=== PATIENT | male | born 1945 | race Caucasian/White ===

== ENCOUNTER 2020-02-21 21:54 | Emergency (ER) | payer MEDICARE, BC ==
[2020-02-21 22:03] VITALS: BP 150/100
--- NOTE | 2020-02-21 22:05 | ED Physician Documentation ---
PD HPI MALE - Stated complaint Stated Complaint: MALE - Chief complaint Chief Complaint: Abd Pain - History obtained from History obtained from: Patient - History of Present Illness Timing - onset: Today Timing - duration: Hours Timing - details: Gradual onset, Constant Pain level now: 8 Associated symptoms: Unable to urinate, Hematuria Similar symptoms before: Diagnosis Recently seen: Clinic - Additional information Additional information: seen by PMD 5 days ago and diagnosed with UTI, rx cipro. presents at this time due to urinary retention x several hours with urge to urinate but unable to do so and increasing suprapubic pain and pressure Review of Systems Constitutional: reports: Reviewed and negative GI: reports: Reviewed and negative : reports: Unable to Void PD PAST MEDICAL HISTORY - Past Medical History Past Medical History: Yes Cardiovascular: Hypertension, High cholesterol Endocrine/Autoimmune: Type 2 diabetes - Present Medications Home Medications: Ambulatory Orders Medication Instructions Recorded Confirmed Atorvastatin [Lipitor] 40 mg 02/21/20 Glimepiride [Amaryl] 2 mg 02/21/20 Hydrochlorothiazide 25 mg PO 02/21/20 Latanoprost/Pf [Latanoprost 0.005% 02/21/20 Eye Drop] Lisinopril [Zestril] 40 mg 02/21/20 Omeprazole 20 mg PO 02/21/20 Pioglitazone [Actos] 30 mg PO DAILY 02/21/20 02/21/20 metFORMIN [Glucophage] 1,000 mg PO BID 02/21/20 02/21/20 - Allergies Allergies/Adverse Reactions: Allergies Allergy/AdvReac Type Severity Reaction Status Date / Time No Known Drug Allergies Allergy Verified 02/21/20 21:56 PD ED PE NORMAL - Vitals Vital signs reviewed: Yes - General General: Alert and oriented X 3, No acute distress, Well developed/nourished - Abdomen Abdomen: Soft, Other (distended and mild TTP suprapubic region) - Back Back: No CVA TTP Results - Vitals Vitals: Vital Signs - 24 hr 02/21/20 21:56 Temperature 36.5 C Heart Rate 52 L Respiratory 16 Rate Blood Pressure 150/100 H O2 Saturation 97 Oxygen O2 Source Room air PD MEDICAL DECISION MAKING - ED course Complexity details: re-evaluated patient ED course: ED RN placed elliott catheter, several hundred cc output of translucent grossly bloody urine; this resulted in resolution of his presenting symptoms Departure - Departure Disposition: 01 Home, Self Care Clinical Impression: Urinary retention, Hematuria Condition: Good Instructions: ED Catheter Care Elliott, ED Hematuria, ED Retention Urinary Male Follow-Up: CHANDRAKANT OCONNOR MD [Primary Care Provider] - Comments: Follow up with your urologist this week. If this cannot be arranged, follow up with your primary care provider. Discharge Date/Time: 02/21/20 23:23
== END 2020-02-21 23:23 | disposition home or self-care (01) ==
LOC: ED 21:54
DX: R33.9 Retention of urine, unspecified (principal); R31.0 Gross hematuria; I10 Essential (primary) hypertension; E11.9 Type 2 diabetes mellitus without complications; Z79.84 Long term (current) use of oral hypoglycemic drugs
CPT/HCPCS: 51702; 51798; 99283

== ENCOUNTER 2020-02-22 18:51 | Emergency (ER) | payer MEDICARE, BC ==
[2020-02-22 19:01] VITALS: BP 174/65
--- NOTE | 2020-02-22 19:17 | ED Physician Documentation ---
History of Present Illness - Stated complaint Stated Complaint: MALE - Chief complaint Chief Complaint: General - History obtained from History obtained from: Patient - Additonal information Additional information: He was recently started on ciprofloxacin for UTI. Came here yesterday and had urinary retention and a Callahan was placed with resolution. States that around 430 this afternoon the catheter stopped draining and has suprapubic pressure again. Has a remote history of prostate cancer. In the interim he called his urologist and he has an appointment on the . Review of Systems Constitutional: denies: Fever, Chills Cardiac: denies: Chest pain / pressure, Palpitations Respiratory: denies: Dyspnea, Cough PD PAST MEDICAL HISTORY - Past Medical History Cardiovascular: Hypertension, High cholesterol Respiratory: None Neuro: None Endocrine/Autoimmune: Type 2 diabetes GI: Esophageal varices : None HEENT: None Psych: None Musculoskeletal: None Derm: None - Past Surgical History Past Surgical History: Yes HEENT: Tonsil/Adenoidectomy - Present Medications Home Medications: Ambulatory Orders Medication Instructions Recorded Confirmed Atorvastatin [Lipitor] 40 mg 02/21/20 Glimepiride [Amaryl] 2 mg 02/21/20 Hydrochlorothiazide 25 mg PO 02/21/20 Latanoprost/Pf [Latanoprost 0.005% 02/21/20 Eye Drop] Lisinopril [Zestril] 40 mg 02/21/20 Omeprazole 20 mg PO 02/21/20 Pioglitazone [Actos] 30 mg PO DAILY 02/21/20 02/21/20 metFORMIN [Glucophage] 1,000 mg PO BID 02/21/20 02/21/20 - Allergies Allergies/Adverse Reactions: Allergies Allergy/AdvReac Type Severity Reaction Status Date / Time No Known Drug Allergies Allergy Verified 02/22/20 19:01 - Social History Does the pt smoke?: No Smoking Status: Former smoker Does the pt drink ETOH?: Yes Does the pt have substance abuse?: No - Immunizations Immunizations are current?: No - POLST Patient has POLST: No PD ED PE NORMAL - Vitals Vital signs reviewed: Yes - General General: Alert and oriented X 3, No acute distress - HEENT HEENT: PERRL, EOMI - Neck Neck: Supple, no meningeal sign, No bony TTP - Abdomen Abdomen: Normal bowel sounds, Soft, Non tender - Male Male : Other (The catheter was flushed at the bedside by me, a single large clot returned and then he had free-flowing only slightly hematuric urine.) - Back Back: No CVA TTP, No spinal TTP - Neuro Neuro: Alert and oriented X 3, Normal speech Results - Vitals Vitals: Vital Signs - 24 hr 02/22/20 18:55 Temperature 36.3 C L Heart Rate 90 Respiratory 18 Rate Blood Pressure 174/65 H O2 Saturation 98 Oxygen O2 Source Room air PD MEDICAL DECISION MAKING - ED course ED course: His catheter was blocked and easily fixed with flushing, single large clot was removed and then the urine was fairly clear. He has an appoint with his urologist in a week. Encouraged him to keep this as he may need a cystoscopy but he would like the catheter out sooner and advised that he could follow-up with his primary care physician or even consider returning to the emergency department in a few days for a voiding trial. Departure - Departure Disposition: 01 Home, Self Care Clinical Impression: Complication, blocked Callahan catheter Qualifiers: Encounter type: initial encounter Qualified Code(s): T83.091A - Other mechanical complication of indwelling urethral catheter, initial encounter Condition: Good Record reviewed to determine appropriate education?: Yes Instructions: ED Catheter Care Callahan Comments: Follow-up with your doctor in 3 to 4 days for catheter removal and voiding trial. Keep the appointment you have with the urologist, it would be beneficial to have a urologic consultation and consideration for cystoscopy regardless. Finish the course of antibiotics. Return if worse.
== END 2020-02-22 19:27 | disposition home or self-care (01) ==
LOC: ED 18:51
DX: T83.091A Other mechanical complication of indwelling urethral catheter, initial encounter (principal); Y84.6 Urinary catheterization as the cause of abnormal reaction of the patient, or of later complication, without mention of misadventure at the time of the procedure; I10 Essential (primary) hypertension; E11.9 Type 2 diabetes mellitus without complications; Z79.84 Long term (current) use of oral hypoglycemic drugs; Z87.891 Personal history of nicotine dependence
CPT/HCPCS: 51700; 99284

== ENCOUNTER 2020-02-22 22:40 | Emergency (ER) | payer MEDICARE, BC ==
[2020-02-22 22:46] VITALS: BP 170/90
--- NOTE | 2020-02-22 23:21 | ED Physician Documentation ---
PD HPI MALE - Stated complaint Stated Complaint: MALE - Chief complaint Chief Complaint: General - History obtained from History obtained from: Patient - History of Present Illness Timing - onset: Today Associated symptoms: Unable to urinate, Elliott problem (he had elliott placed for urinary retention and was back earlier today with it blocked. Flow restored with irrigating clots out. Was doing okay and then feeling of fullness with elliott not draining again the past few hours. Having some urine out around the elliott. No noted hematuria per se. No fever.) PD HPI MALE CONTRIB FACTORS: Other (recent elliott due to inability to urinate.) Recently seen: Emergency Dept Review of Systems Constitutional: denies: Fever GI: denies: Nausea, Vomiting, Diarrhea : denies: Discharge Neurologic: denies: Generalized weakness PD PAST MEDICAL HISTORY - Past Medical History Cardiovascular: Hypertension, High cholesterol Respiratory: None Neuro: None Endocrine/Autoimmune: Type 2 diabetes GI: Esophageal varices : None HEENT: None Psych: None Musculoskeletal: None Derm: None - Past Surgical History Past Surgical History: Yes HEENT: Tonsil/Adenoidectomy - Present Medications Home Medications: Ambulatory Orders Medication Instructions Recorded Confirmed Atorvastatin [Lipitor] 40 mg 02/21/20 Glimepiride [Amaryl] 2 mg 02/21/20 Hydrochlorothiazide 25 mg PO 02/21/20 Latanoprost/Pf [Latanoprost 0.005% 02/21/20 Eye Drop] Lisinopril [Zestril] 40 mg 02/21/20 Omeprazole 20 mg PO 02/21/20 Pioglitazone [Actos] 30 mg PO DAILY 02/21/20 02/21/20 metFORMIN [Glucophage] 1,000 mg PO BID 02/21/20 02/21/20 - Allergies Allergies/Adverse Reactions: Allergies Allergy/AdvReac Type Severity Reaction Status Date / Time No Known Drug Allergies Allergy Verified 02/22/20 22:42 - Social History Does the pt smoke?: No Smoking Status: Former smoker Does the pt drink ETOH?: Yes Does the pt have substance abuse?: No - Immunizations Immunizations are current?: No - POLST Patient has POLST: No PD ED PE NORMAL - Vitals Vital signs reviewed: Yes - General General: Alert and oriented X 3, Well developed/nourished, Other (appears in discomfort due to bladder fullness. ) - Abdomen Abdomen: Normal bowel sounds, Soft, No organomegaly, Other (fullness and tender in bladder area. Elliott in place but not draining. There is some dripping of urine around the elliott at the meatus. ) - Back Back: No CVA TTP - Derm Derm: Normal color, Warm and dry Results - Vitals Vitals: Vital Signs - 24 hr 02/22/20 22:42 Temperature 36.6 C Heart Rate 78 Respiratory 16 Rate Blood Pressure 170/90 H O2 Saturation 96 Oxygen O2 Source Room air PD MEDICAL DECISION MAKING - ED course Complexity details: considered differential (Nursing irrigated the elliott and got out several clots and then the flow from the elliott was restored and flowing clear urine without any gross hematuria nor further clots. He is feeling much better. ), d/w patient Departure - Departure Disposition: 01 Home, Self Care Clinical Impression: Complication, blocked Elliott catheter Qualifiers: Encounter type: subsequent encounter Qualified Code(s): T83.091D - Other mechanical complication of indwelling urethral catheter, subsequent encounter Condition: Stable Record reviewed to determine appropriate education?: Yes Follow-Up: CHANDRAKANT OCONNOR MD [Primary Care Provider] - Comments: Keep the Elliott in place. Follow-up with urology as planned. Try irrigating the catheter if it seems to clog up again. Return as needed. Discharge Date/Time: 02/23/20 00:35
== END 2020-02-23 00:35 | disposition home or self-care (01) ==
LOC: ED 22:40
DX: T83.091A Other mechanical complication of indwelling urethral catheter, initial encounter (principal); Y84.6 Urinary catheterization as the cause of abnormal reaction of the patient, or of later complication, without mention of misadventure at the time of the procedure; I10 Essential (primary) hypertension

== ENCOUNTER 2022-07-21 19:46 | Emergency (ER) | payer MEDICARE, BC ==
--- NOTE | 2022-07-21 20:41 | ED Physician Documentation ---
PD HPI MALE - Stated complaint Stated Complaint: MALE - Chief complaint Chief Complaint: Abd Pain - History obtained from History obtained from: Patient - History of Present Illness Pain level max: 5 Pain level now: 4 Associated symptoms: Dysuria, Unable to urinate - Additional information Additional information: Patient is a 77-year-old male who presents to the emergency department stating he has been unable to urinate today. This is occurred several times in the past. He states usually due to recurrent UTIs. He has had radiation to his prostate in the past. He has a urologist that he has been followed by. No fevers. No chills. Nothing makes it better or worse. No nausea or vomiting. He states that this is the third occurrence of similar symptoms in the past 3 months. He was recently on ciprofloxacin for same. Review of Systems Constitutional: denies: Fever, Chills GI: denies: Vomiting Skin: denies: Rash Musculoskeletal: denies: Neck pain, Back pain Neurologic: denies: Headache PD PAST MEDICAL HISTORY - Past Medical History Cardiovascular: Hypertension, High cholesterol Respiratory: None Neuro: None Endocrine/Autoimmune: Type 2 diabetes GI: Esophageal varices : None HEENT: None Psych: None Musculoskeletal: None Derm: None - Past Surgical History Past Surgical History: Yes HEENT: Tonsil/Adenoidectomy - Present Medications Home Medications: Ambulatory Orders Medication Instructions Recorded Confirmed Atorvastatin [Lipitor] 40 mg 02/21/20 Glimepiride [Amaryl] 2 mg 02/21/20 Latanoprost/Pf [Latanoprost 0.005% 02/21/20 Eye Drop] Lisinopril [Zestril] 40 mg 02/21/20 Omeprazole 20 mg PO 02/21/20 Pioglitazone [Actos] 30 mg PO DAILY 02/21/20 02/21/20 hydroCHLOROthiazide 25 mg PO 02/21/20 [Hydrochlorothiazide] metFORMIN [Glucophage] 1,000 mg PO BID 02/21/20 02/21/20 Cefpodoxime Proxetil [Vantin] 100 mg PO Q12H #14 tablet 07/21/22 - Allergies Allergies/Adverse Reactions: Allergies Allergy/AdvReac Type Severity Reaction Status Date / Time No Known Drug Allergies Allergy Verified 07/21/22 19:48 - Social History Does the pt smoke?: No Smoking Status: Former smoker Does the pt drink ETOH?: Yes Does the pt have substance abuse?: No - Immunizations Immunizations are current?: No - POLST Patient has POLST: No PD ED PE NORMAL - Vitals Vital signs reviewed: Yes - General General: Alert and oriented X 3, No acute distress - Cardiac Cardiac: RRR - Respiratory Respiratory: No respiratory distress, Clear bilaterally - Abdomen Abdomen: Soft, Non distended, Other (Mild suprapubic tenderness to palpation.) - Back Back: No CVA TTP - Derm Derm: Warm and dry - Neuro Neuro: Alert and oriented X 3 - Psych Psych: Normal mood, Normal affect Results - Vitals Vitals: Vital Signs - 24 hr 07/21/22 19:48 Temperature 36.5 C Heart Rate 79 Respiratory 16 Rate Blood Pressure 160/80 H O2 Saturation 98 Oxygen O2 Source Room air - Labs Labs: Laboratory Tests 07/21/22 21:15 Urine Color RED/BLOODY Urine Clarity CLOUDY Urine pH 6.0 Ur Specific Hodge 1.020 Urine Protein 100 H Urine Glucose (UA) NEGATIVE Urine Ketones NEGATIVE Urine Occult Blood LARGE H Urine Nitrite NEGATIVE Urine Bilirubin NEGATIVE Urine Urobilinogen 0.2 (NORMAL) Ur Leukocyte Esterase NEGATIVE Urine RBC TNTC H Urine WBC 0-3 Ur Squamous Epith Cells NONE SEEN Urine Bacteria Rare Ur Microscopic Review INDICATED Urine Culture Comments NOT INDICATED PD Medical Decision Making - ED course Complexity details: reviewed results, re-evaluated patient, considered differential, d/w patient ED course: Callahan catheter was placed, approximately 700 mils of dark urine was drained. Urinalysis with rare bacteria, large blood. He states that this is always cleared with antibiotics in the past. We will place him on cefpodoxime. We will have him follow-up with his urologist early next week. The catheter was left in place due to the urinary retention. No fevers. No chills. No indication for laboratory testing. No evidence of sepsis. Patient counseled regarding signs and symptoms for which I believe and urgent re-evaluation would be necessary. Patient with good understanding of and agreement to plan and is comfortable going home at this time This document was made in part using voice recognition software. While efforts are made to proofread this document, sound alike and grammatical errors may occur. Departure - Departure Disposition: 01 Home, Self Care Clinical Impression: Acute urinary retention Condition: Good Instructions: ED Catheter Care Callahan, ED Retention Urinary Male, ED UTI Cystitis Male Follow-Up: CHANDRAKANT OCONNOR MD [Primary Care Provider] - Within 1 week [facility] [place] [Provider Group] Prescriptions: Cefpodoxime Proxetil [Vantin] 100 mg PO Q12H #14 tablet Comments: Your prescriptions were sent to [facility] in [place]. Please take all antibiotics until gone. Please return if you worsen. Please follow-up with your doctor on Saturday for catheter removal. You could also go to the walk-in clinic in [place]. Please talk to your urologist on Saturday as well. Please make sure you are drinking plenty of water at home and take all antibiotics until gone.
[2022-07-21 21:27] LABS: BILIRUBIN,URINE NEGATIVE (NEGATIVE); GLUCOSE, URINE (UA) NEGATIVE (NEGATIVE); KETONES,URINE (UA) NEGATIVE (NEGATIVE); LEUKOCYTE ESTERASE, URINE NEGATIVE (NEGATIVE); NITRITE,URINE NEGATIVE (NEGATIVE); OCCULT BLOOD,URINE LARGE (NEGATIVE); PROTEIN,URINE 100 mg/dL (NEGATIVE); UROBILINOGEN,URINE 0.2 (NORMAL) E.U./dL (NORMAL)
[2022-07-21 21:30] LABS: CLARITY,URINE CLOUDY (CLEAR)
[2022-07-21 21:31] LABS: BACTERIA,URINE Rare /HPF (None Seen); RBC,URINE TNTC /HPF (0-5); SQUAMOUS EPITHELIAL CELL,UR NONE SEEN (<= Few); WBC,URINE 0-3 /HPF (0-3)
[2022-07-21] MEDS ORDERED: CEFPODOXIME PROXETIL 100 MG TABLET PO STA (21:37)
[2022-07-21 22:02] VITALS: BP 150/80
== END 2022-07-21 22:18 | disposition home or self-care (01) ==
LOC: ED 19:46
DX: R33.9 Retention of urine, unspecified (principal); I10 Essential (primary) hypertension; E11.9 Type 2 diabetes mellitus without complications; Z79.84 Long term (current) use of oral hypoglycemic drugs; Z87.891 Personal history of nicotine dependence
CPT/HCPCS: 51702; 81001; 99283; A9270; 81003; 87086

== ENCOUNTER 2022-07-31 08:00 | Outpatient (CLI) | payer MEDICARE, BC ==
[2022-07-31 21:38] LABS: BILIRUBIN,URINE NEGATIVE (NEGATIVE); GLUCOSE, URINE (UA) 100 mg/dL (NEGATIVE); KETONES,URINE (UA) NEGATIVE (NEGATIVE); LEUKOCYTE ESTERASE, URINE NEGATIVE (NEGATIVE); NITRITE,URINE NEGATIVE (NEGATIVE); OCCULT BLOOD,URINE LARGE (NEGATIVE); PROTEIN,URINE 100 mg/dL (NEGATIVE); UROBILINOGEN,URINE 0.2 (NORMAL) E.U./dL (NORMAL)
[2022-07-31 21:39] LABS: BACTERIA,URINE Rare /HPF (None Seen); CLARITY,URINE HAZY (CLEAR); RBC,URINE TNTC /HPF (0-5); SQUAMOUS EPITHELIAL CELL,UR NONE SEEN (<= Few); WBC,URINE 0-3 /HPF (0-3)
== END 2022-07-31 23:59 | disposition home or self-care (01) ==
LOC: LAB.S 08:00
PROVIDERS: ATTEND Emergency Medicine
DX: R31.9 Hematuria, unspecified (principal)
CPT/HCPCS: 81001; 87086

== ENCOUNTER 2022-08-16 19:16 | Emergency (ER) | payer MEDICARE, BC ==
[2022-08-16 19:35] VITALS: BP 162/65
--- OUTSIDE RECORDS SUMMARY | 2022-08-16 19:46 | EXTERNAL MEDICAL SUMMARY RPT | Continuity of Care Document ---
Author Name Unknown Address [address] [place] [address] Phone Organization [facility] Address [address] [place] [address] Phone Care Team Providers Care Director Of Business Development Name Role Phone Unavailable Unavailable Unavailable Wilson Carter Md Unavailable Unavailable Jan Tucker, Bhavik Unavailable Unavailable Roland Patient Registrar, Catina Unavailable Unavailable Cresencio Patient Registrar, Diony Unavailable U navailable Medications date description facility 2022-07-23 00:00 [facility]othiazide [facility] [place] 2022-07-24 00:00 hydrochlorothiazide [facility] [place] 2022-07-31 00:00 hydrochlorothiazide [facility] [place] 2022-08-01 00:00 hydrochlorothiazide [facility] [place] 2022-08-09 00:00 hydrochlorothiazide [facility] [place] 2022-07-23 00[facility]00 [facility] [place] 2022-07-24 00:00 [facility]opril [facility] [place] 2022-07-31 00[facility]00 [facility]opril [facility] [place] 2022-08-01 00:00 lisinopril [facility] [place] 2022-08-09 00:00 lisinopril [facility] [place] 2022-07-23 00:00 cefpodoxime [facility] [place] 2022-07-24 00:00 cefpodoxime [facility] [place] 2022-07-31 00:00 cefpodoxime [facility] [place] 2022-08-01 00:00 cefpodoxime [facility] [place] 2022-08-09 00:00 cefpodoxime [facility] [place] 2022-07-23 00:00 [facility]floxacin [facility]cl [facility] [place] 2022-07-24 00:00 ciprofloxacin hcl [facility] [place] 2022-07-31 00:00 ciprofloxacin hcl [facility] [place] 2022-08-01 00:00 ciprofloxacin hcl [facility] [place] 2022-08-09 00:00 ciprofloxacin hcl [facility] [place] 2022-07-23 00:00 hydrochlorothiazide [facility] [place] 2022-07-24 00:00 hydrochlorothiazide [facility] [place] 2022-07-31 00:00 hydrochlorothiazide [facility] [place] 2022-08-01 00:00 hydrochlorothiazide [facility] [place] 2022-08-09 00:00 hydrochlorothiazide [facility] [place] 2022-07-23 00[facility]00 [facility]opril [facility] [place] 2022-07-24 00:00 lisinopril [facility] [place] 2022-07-31 00:00 lisinopril [facility] [place] 2022-08-01 00:00 lisinopril [facility] [place] 2022-08-09 00:00 lisinopril [facility] [place] 2022-07-23 00:00 omeprazole [facility] [place] 2022-07-24 00:00 omeprazole [facility] [place] 2022-07-31 00:00 omeprazole [facility] [place] 2022-08-01 00:00 omeprazole [facility] [place] 2022-08-09 00:00 omeprazole [facility] [place] 2022-07-23 00:00 glimepiride [facility] [place] 2022-07-24 00:00 glimepiride [facility] [place] 2022-07-31 00:00 glimepiride [facility] [place] 2022-08-01 00:00 glimepiride [facility] [place] 2022-08-09 00:00 glimepiride [facility] [place] 2022-07-23 00:00 cefpodoxime [facility] [place] 2022-07-24 00:00 cefpodoxime [facility] [place] 2022-07-31 00:00 cefpodoxime [facility] [place] 2022-08-01 00:00 cefpodoxime [facility] [place] 2022-08-09 00:00 cefpodoxime [facility] [place] 2022-07-23 00:00 glimepiride [facility] [place] 2022-07-24 00:00 glimepiride [facility] [place] 2022-07-31 00:00 glimepiride [facility] [place] 2022-08-01 00:00 glimepiride [facility] [place] 2022-08-09 00:00 glimepiride [facility] [place] 2022-07-23 00:00 metformin [facility] [place] 2022-07-24 00:00 metformin [facility] [place] 2022-07-31 00:00 metformin [facility] [place] 2022-08-01 00:00 metformin [facility] [place] 2022-08-09 00:00 metformin [facility] [place] 2022-07-23 00:00 pioglitazone [facility] [place] 2022-07-24 00:00 pioglitazone [facility] [place] 2022-07-31 00:00 pioglitazone [facility] [place] 2022-08-01 00:00 pioglitazone [facility] [place] 2022-08-09 00:00 pioglitazone [facility] [place] 2022-07-23 00:00 lisinopril [facility] [place] 2022-07-24 00:00 lisinopril [facility] [place] 2022-07-31 00:00 lisinopril [facility] [place] 2022-08-01 00:00 lisinopril [facility] [place] 2022-08-09 00:00 lisinopril [facility] [place] 2022-07-23 00:00 cefpodoxime [facility] [place] 2022-07-24 00:00 cefpodoxime [facility] [place] 2022-07-31 00:00 cefpodoxime [facility] [place] 2022-08-01 00:00 cefpodoxime [facility] [place] 2022-08-09 00:00 cefpodoxime [facility] [place] 2022-07-23 00:00 ciprofloxacin hcl [facility] [place] 2022-07-24 00:00 ciprofloxacin hcl [facility] [place] 2022-07-31 00:00 ciprofloxacin hcl [facility] [place] 2022-08-01 00:00 ciprofloxacin hcl [facility] [place] 2022-08-09 00:00 ciprofloxacin hcl [facility] [place] 2022-07-23 00:00 [facility]othiazide [facility] [place] 2022-07-24 00:00 hydrochlorothiazide [facility] [place] 2022-07-31 00:00 hydrochlorothiazide [facility] [place] 2022-08-01 00:00 hydrochlorothiazide [facility] [place] 2022-08-09 00:00 hydrochlorothiazide [facility] [place] 2022-07-23 00:00 pioglitazone [facility] [place] 2022-07-24 00:00 pioglitazone [facility] [place] 2022-07-31 00:00 pioglitazone [facility] [place] 2022-08-01 00:00 pioglitazone [facility] [place] 2022-08-09 00:00 pioglitazone [facility] [place] 2022-07-23 00:00 latanoprost [facility] [place] 2022-07-24 00:00 latanoprost [facility] [place] 2022-07-31 00:00 latanoprost [facility] [place] 2022-08-01 00:00 latanoprost [facility] [place] 2022-08-09 00:00 latanoprost [facility] [place] 2022-07-23 00:00 lisinopril [facility] [place] 2022-07-24 00:00 lisinopril [facility] [place] 2022-07-31 00:00 lisinopril [facility] [place] 2022-08-01 00:00 lisinopril [facility] [place] 2022-08-09 00:00 lisinopril [facility] [place] 2022-07-23 00:00 hydrochlorothiazide [facility] [place] 2022-07-24 00:00 hydrochlorothiazide [facility] [place] 2022-07-31 00:00 hydrochlorothiazide [facility] [place] 2022-08-01 00:00 hydrochlorothiazide [facility] [place] 2022-08-09 00:00 hydrochlorothiazide [facility] [place] 2022-07-23 00[facility]00 atorvastatin [facility] [place] 2022-07-24 00:00 atorvastatin [facility] [place] 2022-07-31 00:00 atorvastatin [facility] [place] 2022-08-01 00:00 atorvastatin [facility] [place] 2022-08-09 00:00 atorvastatin [facility] [place] 2022-07-23 00:00 glimepiride [facility] [place] 2022-07-24 00:00 glimepiride [facility] [place] 2022-07-31 00:00 glimepiride [facility] [place] 2022-08-01 00:00 glimepiride [facility] [place] 2022-08-09 00:00 glimepiride [facility] [place] 2022-07-23 00:00 latanoprost [facility] [place] 2022-07-24 00:00 latanoprost [facility] [place] 2022-07-31 00:00 latanoprost [facility] [place] 2022-08-01 00:00 latanoprost [facility] [place] 2022-08-09 00:00 latanoprost [facility] [place] 2022-07-23 00:00 atorvastatin [facility] [place] 2022-07-24 00:00 atorvastatin [facility] [place] 2022-07-31 00:00 atorvastatin [facility] [place] 2022-08-01 00:00 atorvastatin [facility] [place] 2022-08-09 00:00 atorvastatin [facility] [place] 2022-07-23 00:00 omeprazole [facility] [place] 2022-07-24 00:00 omeprazole [facility] [place] 2022-07-31 00:00 omeprazole [facility] [place] 2022-08-01 00:00 omeprazole [facility] [place] 2022-08-09 00:00 omeprazole [facility] [place] 2022-07-23 00:00 ciprofloxacin hcl [facility] [place] 2022-07-24 00:00 ciprofloxacin hcl [facility] [place] 2022-07-31 00:00 ciprofloxacin hcl [facility] [place] 2022-08-01 00:00 ciprofloxacin hcl [facility] [place] 2022-08-09 00:00 ciprofloxacin hcl [facility] [place] 2022-07-23 00:00 glimepiride [facility] [place] 2022-07-24 00:00 glimepiride [facility] [place] 2022-07-31 00:00 glimepiride [facility] [place] 2022-08-01 00:00 glimepiride [facility] [place] 2022-08-09 00:00 glimepiride [facility] [place] 2022-07-23 00:00 metformin [facility] [place] 2022-07-24 00:00 metformin [facility] [place] 2022-07-31 00:00 metformin [facility] [place] 2022-08-01 00:00 metformin [facility] [place] 2022-08-09 00:00 metformin [facility] [place] 2022-07-23 00:00 metformin [facility] [place] 2022-07-24 00:00 metformin [facility] [place] 2022-07-31 00:00 metformin [facility] [place] 2022-08-01 00:00 metformin [facility] [place] 2022-08-09 00:00 metformin [facility] [place] 2022-07-23 00:00 ciprofloxacin hcl [facility] [place] 2022-07-24 00:00 ciprofloxacin hcl [facility] [place] 2022-07-31 00:00 ciprofloxacin hcl [facility] [place] 2022-08-01 00:00 ciprofloxacin hcl [facility] [place] 2022-08-09 00:00 ciprofloxacin hcl [facility] [place] 2022-07-23 00:00 pioglitazone [facility] [place] 2022-07-24 00:00 pioglitazone [facility] [place] 2022-07-31 00:00 pioglitazone [facility] [place] 2022-08-01 00:00 pioglitazone [facility] [place] 2022-08-09 00:00 pioglitazone [facility] [place] 2022-07-23 00:00 latanoprost [facility] [place] 2022-07-24 00:00 latanoprost [facility] [place] 2022-07-31 00:00 latanoprost [facility] [place] 2022-08-01 00:00 latanoprost [facility] [place] 2022-08-09 00:00 latanoprost [facility] [place] 2022-07-23 00:00 atorvastatin [facility] [place] 2022-07-24 00:00 atorvastatin [facility] [place] 2022-07-31 00:00 atorvastatin [facility] [place] 2022-08-01 00:00 atorvastatin [facility] [place] 2022-08-09 00:00 atorvastatin [facility] [place] 2022-07-23 00:00 omeprazole [facility] [place] 2022-07-24 00:00 omeprazole [facility] [place] 2022-07-31 00:00 omeprazole [facility] [place] 2022-08-01 00:00 omeprazole [facility] [place] 2022-08-09 00:00 omeprazole [facility] [place] 2022-07-23 00:00 pioglitazone [facility] [place] 2022-07-24 00:00 pioglitazone [facility] [place] 2022-07-31 00:00 pioglitazone [facility] [place] 2022-08-01 00:00 pioglitazone [facility] [place] 2022-08-09 00:00 pioglitazone [facility] [place] 2022-07-23 00:00 atorvastatin [facility] [place] 2022-07-24 00:00 atorvastatin [facility] [place] 2022-07-31 00:00 atorvastatin [facility] [place] 2022-08-01 00:00 atorvastatin [facility] [place] 2022-08-09 00:00 atorvastatin [facility] [place] 2022-07-23 00:00 omeprazole [facility] [place] 2022-07-24 00:00 omeprazole [facility] [place] 2022-07-31 00:00 omeprazole [facility] [place] 2022-08-01 00:00 omeprazole [facility] [place] 2022-08-09 00:00 omeprazole [facility] [place] 2022-07-23 00:00 cefpodoxime [facility] [place] 2022-07-24 00:00 cefpodoxime [facility] [place] 2022-07-31 00:00 cefpodoxime [facility] [place] 2022-08-01 00:00 cefpodoxime [facility] [place] 2022-08-09 00:00 cefpodoxime [facility] [place] 2022-07-23 00:00 metformin [facility] [place] 2022-07-24 00:00 metformin [facility] [place] 2022-07-31 00:00 metformin [facility] [place] 2022-08-01 00:00 metformin [facility] [place] 2022-08-09 00:00 metformin [facility] [place] 2022-07-23 00:00 latanoprost [facility] [place] 2022-07-24 00:00 latanoprost [facility] [place] 2022-07-31 00:00 latanoprost [facility] [place] 2022-08-01 00:00 latanoprost [facility] [place] 2022-08-09 00:00 latanoprost [facility] [place] Problems date description facility 2022-07-23 00:00 No current problems or disability - unknown [facility] [place] 2022-07-23 00:00 Benign essential hypertension W [facility] [place] 2022-07-23 00:00 Benign essential hypertension [facility] [place] 2022-07-23 00:00 Benign essential hypertension [facility] [place] 2022-07-23 00:00 Acute urinary tract infection [facility] [place] 2022-07-23 00:00 Acute urinary tract infection W [facility] [place] 2022-07-23 00:00 Acute urinary tract infection W [facility] [place] 2022-07-23 00:00 Essential (primary) hypertensio n [facility] [place] 2022-07-23 00:00 Essential (primary) hypertensio n [facility] [place] 2022-07-23 00:00 Essential (primary) hypertensio n [facility] [place] 2022-07-23 00:00 Urinary tract infect ion, site not specified [facility] [place] 2022-07-23 00:00 Urinary tract infect ion, site not specified [facility] [place] 2022-07-23 00:00 Urinary tract infect ion, site not specified [facility] [place] 2022-07-31 00:00 Retention of urine [facility] [place] 2022-07-31 00:00 Blood in urine [facility] [place] 2022-07-31 00:00 Hematuria, unspecified [facility] [place] 2022-07-31 00:00 Retention of urine, unspecified [facility] [place] Procedures date description facility 2022-07-23 00:00 Visit Code Hold [facility] [place] 2022-07-23 00:00 Visit Code Hold [facility] [place] 2022-07-23 00:00 Visit Code Hold [facility] [place] 2022-07-31 00:00 Visit Code Hold [facility] [place] 2022-07-31 00:00 Visit Code Hold [facility] [place] Results/Labs test date author facility value unit interpretation Result panel 1 (unknown) (no date) (unknown) [facility] [place] (no value) (units unknown) (unknown) Result panel 2 (unknown) (no date) (unknown) [facility] [place] (no value) (units unknown) (unknown) Result panel 3 (unknown) (no date) (unknown) [facility] [place] (no value) (units unknown) (unknown) Result panel 4 (unknown) (no date) (unknown) [facility] [place] (no value) (units unknown) (unknown) Result panel 5 (unknown) (no date) (unknown) [facility] [place] (no value) (units unknown) (unknown) Result panel 6 (unknown) (no date) (unknown) [facility] [place] (no value) (units unknown) (unknown) Result panel 7 (unknown) (no date) (unknown) [facility] [place] (no value) (units unknown) (unknown) Result panel 8 (unknown) (no date) (unknown) [facility] [place] (no value) (units unknown) (unknown) Result panel 9 (unknown) (no date) (unknown) [facility] [place] (no value) (units unknown) (unknown) Result panel 10 (unknown) (no date) (unknown) [facility] [place] (no value) (units unknown) (unknown) Result panel 11 (unknown) (no date) (unknown) [facility] [place] (no value) (units unknown) (unknown) Result panel 12 (unknown) (no date) (unknown) [facility] [place] (no value) (units unknown) (unknown) Result panel 13 (unknown) (no date) (unknown) [facility] [place] (no value) (units unknown) (unknown) Result panel 14 (unknown) (no date) (unknown) [facility] [place] (no value) (units unknown) (unknown) Result panel 15 (unknown) (no date) (unknown) [facility] [place] (no value) (units unknown) (unknown) Result panel 16 (unknown) (no date) (unknown) [facility] [place] (no value) (units unknown) (unknown) Result panel 17 (unknown) (no date) (unknown) [facility] [place] (no value) (units unknown) (unknown) Result panel 18 (unknown) (no date) (unknown) [facility] [place] (no value) (units unknown) (unknown) Result panel 19 (unknown) (no date) (unknown) [facility] [place] (no value) (units unknown) (unknown) Result panel 20 (unknown) (no date) (unknown) [facility] [place] (no value) (units unknown) (unknown) Result panel 21 (unknown) (no date) (unknown) [facility] [place] (no value) (units unknown) (unknown) Result panel 22 (unknown) (no date) (unknown) [facility] [place] (no value) (units unknown) (unknown) Result panel 23 (unknown) (no date) (unknown) [facility] [place] (no value) (units unknown) (unknown) Result panel 24 (unknown) (no date) (unknown) [facility] [place] (no value) (units unknown) (unknown) Result panel 25 (unknown) (no date) (unknown) [facility] [place] (no value) (units unknown) (unknown) Result panel 26 (unknown) (no date) (unknown) [facility] [place] (no value) (units unknown) (unknown) Result panel 27 (unknown) (no date) (unknown) [facility] [place] (no value) (units unknown) (unknown) Result panel 28 (unknown) (no date) (unknown) [facility] [facility] [place] (no value) (units unknown) (unknown) Result panel 29 (unknown) (no date) (unknown) [facility] [place] (no value) (units unknown) (unknown) Result panel 30 (unknown) (no date) (unknown) [facility] [place] (no value) (units unknown) (unknown) Result panel 31 (unknown) (no date) (unknown) [facility] [place] (no value) (units unknown) (unknown) Result panel 32 (unknown) (no date) (unknown) [facility] [place] (no value) (units unknown) (unknown) Result panel 33 (unknown) (no date) (unknown) [facility] [place] (no value) (units unknown) (unknown) Result panel 34 (unknown) (no date) (unknown) [facility] [place] (no value) (units unknown) (unknown) Result panel 35 (unknown) (no date) (unknown) [facility] [place] (no value) (units unknown) (unknown) Result panel 36 (unknown) (no date) (unknown) [facility] [place] (no value) (units unknown) (unknown) Result panel 37 (unknown) (no date) (unknown) [facility] [place] (no value) (units unknown) (unknown) Result panel 38 (unknown) (no date) (unknown) [facility] [place] (no value) (units unknown) (unknown) Result panel 39 (unknown) (no date) (unknown) [facility] [place] (no value) (units unknown) (unknown) Result panel 40 (unknown) (no date) (unknown) [facility] [place] (no value) (units unknown) (unknown) Result panel 41 (unknown) (no date) (unknown) [facility] [place] (no value) (units unknown) (unknown) Result panel 42 (unknown) (no date) (unknown) [facility] [place] (no value) (units unknown) (unknown) Result panel 43 (unknown) (no date) (unknown) [facility] [place] (no value) (units unknown) (unknown) Result panel 44 (unknown) (no date) (unknown) [facility] [place] (no value) (units unknown) (unknown) Result panel 45 (unknown) (no date) (unknown) [facility] [place] (no value) (units unknown) (unknown) Result panel 46 (unknown) (no date) (unknown) [facility] [place] (no value) (units unknown) (unknown) Result panel 47 (unknown) (no date) (unknown) [facility] [place] (no value) (units unknown) (unknown) Result panel 48 (unknown) (no date) (unknown) [facility] [place] (no value) (units unknown) (unknown) Result panel 49 (unknown) (no date) (unknown) [facility] [place] (no value) (units unknown) (unknown) Result panel 50 (unknown) (no date) (unknown) [facility] [place] (no value) (units unknown) (unknown) Result panel 51 (unknown) (no date) (unknown) [facility] [place] (no value) (units unknown) (unknown) Social History date description facility 2022-07-23 00:00 Never smoker [facility] [place] 2022-07-23 00:00 Never smoker [facility] [place] 2022-07-23 00:00 Never smoker [facility] [place] 2022-07-23 00:00 Unknown if ever smoked [facility] [place] 2022-07-31 00:00 Never smoker [facility] [place] Vital Signs date measurement value units 2022-07-23 00:00 BMI 30.80 kg/m2 2022-07-23 00:00 BP_diastolic 73 mmHg 2022-07-23 00:00 BP_systolic 163 mmHg 2022-07-23 00:00 heart_rate 68 /min 2022-07-23 00:00 height_metric 162.56 cm 2022-07-23 00:00 height_standard 64 in 2022-07-23 00:00 respiration_rate 16 /min 2022-07-23 00:00 temperature_metric 36.67 C 2022-07-23 00:00 temperature_standard 98 F 2022-07-23 00:00 weight_metric 81.1 kg 2022-07-23 00:00 weight_standard 178.8 lb 2022-07-31 00:00 BMI 31.76 kg/m2 2022-07-31 00:00 BP_diastolic 77 mmHg 2022-07-31 00:00 BP_systolic 171 mmHg 2022-07-31 00:00 heart_rate 80 /min 2022-07-31 00:00 height_metric 162.56 cm 2022-07-31 00:00 height_standard 64 in 2022-07-31 00:00 respiration_rate 18 /min 2022-07-31 00:00 temperature_metric 36.28 C 2022-07-31 00:00 temperature_standard 97.3 F 2022-07-31 00:00 weight_metric 83.63 kg 2022-07-31 00:00 weight_standard 184.38 lb
--- NOTE | 2022-08-16 19:48 | ED Physician Documentation ---
History of Present Illness - Stated complaint Stated Complaint: FLANK PAIN - Chief complaint Chief Complaint: General - History obtained from History obtained from: Patient - History of Present Illness Timing: Today Pain level max: 3 Pain level now: 3 - Additonal information Additional information: 77-year-old male states that he has been unable to urinate from his catheter today. The catheter was placed yesterday for urinary retention. 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 He states that today there is urine draining around the catheter and he feels like his bladder is distended. Review of Systems Constitutional: denies: Fever, Chills GI: denies: Vomiting PD PAST MEDICAL HISTORY - Past Medical History Cardiovascular: Hypertension, High cholesterol Respiratory: None Neuro: None Endocrine/Autoimmune: Type 2 diabetes GI: Esophageal varices : None HEENT: None Psych: None Musculoskeletal: None Derm: None - Past Surgical History Past Surgical History: Yes HEENT: Tonsil/Adenoidectomy - Present Medications Home Medications: Ambulatory Orders Medication Instructions Recorded Confirmed Atorvastatin [Lipitor] 40 mg 02/21/20 Glimepiride [Amaryl] 2 mg 02/21/20 Latanoprost/Pf [Latanoprost 0.005% 02/21/20 Eye Drop] Lisinopril [Zestril] 40 mg 02/21/20 Omeprazole 20 mg PO 02/21/20 Pioglitazone [Actos] 30 mg PO DAILY 02/21/20 02/21/20 hydroCHLOROthiazide 25 mg PO 02/21/20 [Hydrochlorothiazide] metFORMIN [Glucophage] 1,000 mg PO BID 02/21/20 02/21/20 Cefpodoxime Proxetil [Vantin] 100 mg PO Q12H #14 tablet 07/21/22 - Allergies Allergies/Adverse Reactions: Allergies Allergy/AdvReac Type Severity Reaction Status Date / Time No Known Drug Allergies Allergy Verified 08/16/22 19:35 - Social History Does the pt smoke?: No Smoking Status: Former smoker Does the pt drink ETOH?: Yes Does the pt have substance abuse?: No - Immunizations Immunizations are current?: No - POLST Patient has POLST: No PD ED PE NORMAL - Vitals Vital signs reviewed: Yes - General General: Alert and oriented X 3, No acute distress - HEENT HEENT: Moist mucous membranes - Abdomen Abdomen: Soft, Non tender - Male Male : Other (Callahan catheter in place.) - Back Back: No CVA TTP, No spinal TTP - Derm Derm: Warm and dry - Neuro Neuro: Alert and oriented X 3 Results - Vitals Vitals: Vital Signs - 24 hr 08/16/22 08/16/22 19:28 20:03 Temperature 36.6 C Heart Rate 93 Respiratory 19 20 Rate Blood Pressure 162/65 H O2 Saturation 97 Oxygen O2 Source Room air - Labs Labs: Laboratory Tests 08/16/22 20:05 Urine Color YELLOW Urine Clarity HAZY Urine pH 5.5 Ur Specific [place] 1.020 Urine Protein NEGATIVE Urine Glucose (UA) 100 H Urine Ketones NEGATIVE Urine Occult Blood LARGE H Urine Nitrite NEGATIVE Urine Bilirubin NEGATIVE Urine Urobilinogen 0.2 (NORMAL) Ur Leukocyte Esterase TRACE H Urine RBC TNTC H Urine WBC 0-3 Ur Squamous Epith Cells RARE Squamous Urine Bacteria Rare Ur Microscopic Review INDICATED Urine Culture Comments INDICATED PD Medical Decision Making - ED course Complexity details: considered differential, d/w patient ED course: The patient's Callahan catheter was removed and he immediately started to urinate. A voiding trial was performed after the catheter was removed and he does not have any postvoid residual. He would like to try to go home without the catheter, will return if he develops retention again. Has an appointment with his urologist in the middle of the month. Patient counseled regarding signs and symptoms for which I believe and urgent re-evaluation would be necessary. Patient with good understanding of and agreement to plan and is comfortable going home at this time This document was made in part using voice recognition software. While efforts are made to proofread this document, sound alike and grammatical errors may occur. Departure - Departure Disposition: 01 Home, Self Care Clinical Impression: Complication, blocked Callahan catheter Qualifiers: Encounter type: initial encounter Qualified Code(s): T83.091A - Other mechanical complication of indwelling urethral catheter, initial encounter Condition: Good Instructions: ED Catheter Care [place] Follow-Up: CHANDRAKANT OCONNOR MD [Primary Care Provider] - Comments: When the catheter was removed, you were able to urinate without difficulty tonight and do not have any further urine in your bladder. Please return if you find yourself unable to urinate again. As we discussed since you are urinating without difficulty and emptying your bladder, we will hold off on placing another catheter. Discharge Date/Time: 08/16/22 20:25
[2022-08-16 20:15] LABS: BILIRUBIN,URINE NEGATIVE (NEGATIVE); CLARITY,URINE HAZY (CLEAR); GLUCOSE, URINE (UA) 100 mg/dL (NEGATIVE); KETONES,URINE (UA) NEGATIVE (NEGATIVE); LEUKOCYTE ESTERASE, URINE TRACE (NEGATIVE); NITRITE,URINE NEGATIVE (NEGATIVE); OCCULT BLOOD,URINE LARGE (NEGATIVE); PH,URINE 5.5 PH (5.0-7.5); PROTEIN,URINE NEGATIVE (NEGATIVE); UROBILINOGEN,URINE 0.2 (NORMAL) E.U./dL (NORMAL)
[2022-08-16 20:24] LABS: RBC,URINE TNTC /HPF (0-5); WBC,URINE 0-3 /HPF (0-3)
[2022-08-16 20:25] LABS: BACTERIA,URINE Rare /HPF (None Seen); SQUAMOUS EPITHELIAL CELL,UR RARE Squamous (<= Few)
--- NOTE | 2022-08-18 12:43 | ED Physician Documentation ---
ED Addendum - Addendum Addendum: 08/18/22 12:41 The patient's urine culture did result as Enterococcus faecalis between 50 and 100,000 colonies. Review of the chart was for clogged catheter. It could be reasonable to treat for potential UTI as a cause. The organism is sensitive to penicillin and quinolones as well as nitrofurantoin and tetracycline amongst others. Doxycycline may be the most easiest and I prescribed 100 mg twice daily for 7 days. It was sent to his listed preferred pharmacy. Nursing will call and notify him.
== END 2022-08-16 20:25 | disposition home or self-care (01) ==
LOC: ED 19:16
DX: T83.091A Other mechanical complication of indwelling urethral catheter, initial encounter (principal); R33.9 Retention of urine, unspecified; Z87.891 Personal history of nicotine dependence
CPT/HCPCS: 51798; 81001; 81003; 87077; 87086; 87181; 99283